=== PATIENT | male | born 1965 | race Hispanic/Latino ===

== ENCOUNTER 2017-09-29 08:43 | Emergency (ER) | payer OTHER ==
[2017-09-29 08:46] VITALS: BMI 42.5
[2017-09-29] MEDS ORDERED: Lidocaine 5% Patch TD STA (09:44)
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
[2017-09-29] MEDS ORDERED: Lidocaine 5% Patch TD ONE (09:59)
--- NOTE | 2017-09-29 10:26 | RAD ---
Date of service: 09/29/2017 PROCEDURE: Radiographs of the Left Shoulder HISTORY: shoulder pain COMPARISON: No prior. FINDINGS: BONES: Normal. No fracture. JOINTS: Unremarkable glenohumeral articulation. Mild acromioclavicular degenerative arthritis. Findings consistent with calcific tendinitis. SOFT TISSUES: Normal. OTHER FINDINGS: None. IMPRESSION: Calcific tendinitis. Mild acromioclavicular degenerative arthritis.
--- NOTE | 2017-09-29 10:28 | RAD ---
Date of service: 09/29/2017 PROCEDURE: Radiographs of the Lumbar Spine. HISTORY: back pain COMPARISON: No prior. FINDINGS: BONES: Normal alignment. No listhesis. No fracture. DISC SPACES: Unremarkable. OTHER FINDINGS: None. IMPRESSION: Unremarkable radiographs of the lumbar spine.
[2017-09-29 12:58] VITALS: BP 120/78; PULSE 78; RESP 18; TEMP 97; O2SAT 98
== END 2017-09-29 12:00 | disposition home or self-care (01) ==
LOC: H.ER 08:43
DX: S49.92XA Unspecified injury of left shoulder and upper arm, initial encounter (principal); M54.9 Dorsalgia, unspecified; V43.52XA Car driver injured in collision with other type car in traffic accident, initial encounter; Y92.410 Unspecified street and highway as the place of occurrence of the external cause; M19.012 Primary osteoarthritis, left shoulder; I10 Essential (primary) hypertension